=== PATIENT | female | born 1970 | race Hispanic/Latino ===

== ENCOUNTER 2017-07-05 08:19 | Emergency (ER) | payer BC ==
[2017-07-05 09:07] LABS: #Basophils 0.1 thou/uL (0.0-0.2); #Eosinphils 0.2 thou/uL (0.0-0.7); #Lymphocytes 1.7 thou/uL (1.20-3.40); #Monocytes 0.6 thou/uL (0.11-0.59); #Neutrophils 3.8 thou/uL (1.40-6.50); %Basophils 0.8 % (0.0-1.0); %Eosinophils 3.5 % (0.0-10.0); %Monocytes 8.8 % (0.0-10.0); %Neutrophils 59.9 % (42.0-75.0); Mean Corpuscular HGB CONC 33.4 g/dL (32.0-36.0); Mean Corpuscular Hemoglobin 29.7 pg (27.0-31.0); Mean Corpuscular Volume 88.7 fl (81.0-99.0); Mean Platelet Volume 7.1 fL (7.4-10.4); Platelet Count 378 thou/uL (130-400); RBC Distribution Width 13.5 % (11.5-14.5); Red Blood Cell (RBC) Count 4.05 mill/uL (4.20-5.40); White Blood Cell (WBC) Count 6.3 thou/uL (4.8-10.8)
--- NOTE | 2017-07-05 09:18 | RAD ---
2 VIEWS CHEST: Date: 07/05/17 COMPARISON: 05/26/17. HISTORY: Chest pain. FINDINGS: Two views of the chest show normal sized cardiomediastinal silhouette. There is no evidence of consol idation, mass, or pleural effusion. Degenerative changes are seen in the spine. IMPRESSION: No evidence of acute cardiopulmonary disease. POS: [facility]
[2017-07-05 09:26] LABS: ALT (SGPT) 18 U/L (8-55); AST (SGOT) 15 U/L (5-34); Alkaline Phosphatase 47 U/L (40-150); Anion Gap 10 mmol/L (10-20); BUN (Urea Nitrogen) 11 mg/dL (7.0-18.7); Bilirubin, Total Less than 0.2 mg/dL (0.2-1.2); Calc. Creatinine Clearance 0 mL/min (70-130); Calcium 9.2 mg/dL (7.8-10.44); Carbon Dioxide 25 mmol/L (22-29); Chloride 107 mmol/L (98-107); Estimated GFR-MDRD Greater than 90; Globulin 3.3 g/dL (2.4-3.5); Glucose 111 mg/dL (70-105); Potassium 3.6 mmol/L (3.5-5.1); Protein, Total 7.3 g/dL (6.0-8.3); Sodium 138 mmol/L (136-145)
[2017-07-05 09:31] LABS: CKMB 0.8 ng/mL (0-6.6); Troponin I Less than 0.010 ng/mL (< 0.028)
--- NOTE | 2017-07-10 14:21 | EKG ---
Test Reason : CP Blood Pressure : / mmHG Vent. Rate : 093 BPM Atrial Rate : 093 BPM P-R Int : 136 ms QRS Dur : 082 ms QT Int : 352 ms P-R-T Axes : 044 027 032 degrees QTc Int : 437 ms Normal sinus rhythm Normal ECG Confirmed by BOGDAN DAVALOS, HOLLIE ([id number]), newspaper editor managing GURU MERCHANT ([id number]) on 07/10/2017 2:21:25 PM Referred By: DR MCFADDEN Confirmed By:HOLLIE MCFADDEN MD
== END 2017-07-05 10:35 | disposition home or self-care (01) ==
LOC: ERS 08:19
DX: R07.89 Other chest pain (principal); R05 Cough; I10 Essential (primary) hypertension
CPT/HCPCS: 36415; 71046; 80053; 82553; 84484; 85025; 93005

== ENCOUNTER 2017-08-07 15:57 | Emergency (ER) | payer BC ==
[~2017-08-07 15:57] MED LIST: ISOVUE-370 76%-LOCM 1 ML ONE
[2017-08-07 16:48] LABS: INR-International Normal Ratio 1.1; PTT 27.4 SEC (22.9-36.1)
[2017-08-07 16:59] LABS: #Basophils 0.1 thou/uL (0.0-0.2); #Eosinphils 0.3 thou/uL (0.0-0.7); #Lymphocytes 1.3 thou/uL (1.20-3.40); #Monocytes 0.5 thou/uL (0.11-0.59); #Neutrophils 4.6 thou/uL (1.40-6.50); %Basophils 0.9 % (0.0-1.0); %Eosinophils 3.9 % (0.0-10.0); %Lymphocytes 19.6 % (21.0-51.0); %Monocytes 7.4 % (0.0-10.0); %Neutrophils 68.3 % (42.0-75.0); Hemoglobin 9.6 g/dL (12.0-16.0); Mean Corpuscular HGB CONC 32.2 g/dL (32.0-36.0); Mean Corpuscular Volume 86.8 fl (81.0-99.0); Mean Platelet Volume 6.5 fL (7.4-10.4); Platelet Count 412 thou/uL (130-400); RBC Distribution Width 12.2 % (11.5-14.5); Red Blood Cell (RBC) Count 3.41 mill/uL (4.20-5.40); White Blood Cell (WBC) Count 6.8 thou/uL (4.8-10.8)
[2017-08-07 17:02] LABS: ALT (SGPT) 12 U/L (8-55); AST (SGOT) 14 U/L (5-34); Albumin 3.9 g/dL (3.5-5.0); Alkaline Phosphatase 52 U/L (40-150); Anion Gap 11 mmol/L (10-20); BUN (Urea Nitrogen) 9 mg/dL (7.0-18.7); Bilirubin, Total Less than 0.2 mg/dL (0.2-1.2); CK (CPK) 51 U/L (29-168); Calc. Creatinine Clearance 0 mL/min (70-130); Calcium 8.5 mg/dL (7.8-10.44); Carbon Dioxide 28 mmol/L (22-29); Chloride 101 mmol/L (98-107); Estimated GFR-MDRD Greater than 90; Glucose 107 mg/dL (70-105); Potassium 3.6 mmol/L (3.5-5.1); Protein, Total 6.9 g/dL (6.0-8.3); Sodium 136 mmol/L (136-145)
[2017-08-07 17:06] LABS: CKMB 0.8 ng/mL (0-6.6)
[2017-08-07 18:57] LABS: Bilirubin Negative (Negative); Blood, Urine Small (Negative); Clarity CLEAR (Clear); Glucose, Urine (Dipstick) Negative (Negative); Leukocyte Large (Negative); Nitrite Negative (Negative); Protein, Urine (Dipstick) Negative (Neg-Trace); Specific Gravity, Urine 1.005 (1.002-1.036); Urobilinogen 0.2 mg/dL (0.2-1.0)
[2017-08-07 18:59] LABS: Bacteria/HPF 1+ HPF (None Seen); Hyaline Casts/LPF 0-3 HYALINE CAST LPF (0-3 Hyaline); Pathc Cast-AUWi Flag 0.13 (0-2.49); RBC/HPF 0-3 HPF (0-3)
[2017-08-07 19:02] LABS: Pregnancy Test - Urine (BHCG) Negative (Negative); Pregu Control Background? CLEAR/WHITE (CLR/WHITE); Pregu Control Bar Appear? YES (CONTROL BAR); Specific Gravity 1.005 (1.002-1.036)
[2017-08-07 19:14] LABS: Crystals/HPF None Seen HPF (Negative); Oval Fat Bodies/HPF None Seen HPF (None Seen); Renal Epithelial None Seen HPF (0-3); Transitional Epithelial NONE SEEN HPF (0-3); Trichomonas/HPF None Seen HPF (None Seen)
[2017-08-07 19:56] LABS: #Eosinphils 0.1 thou/uL (0.0-0.7); #Lymphocytes 1.2 thou/uL (1.20-3.40); #Monocytes 0.5 thou/uL (0.11-0.59); #Neutrophils 6.9 thou/uL (1.40-6.50); %Basophils 0.2 % (0.0-1.0); %Eosinophils 1.1 % (0.0-10.0); %Lymphocytes 14.1 % (21.0-51.0); %Monocytes 5.6 % (0.0-10.0); %Neutrophils 78.9 % (42.0-75.0); Hemoglobin 8.6 g/dL (12.0-16.0); Mean Corpuscular HGB CONC 32.1 g/dL (32.0-36.0); Mean Corpuscular Hemoglobin 28.4 pg (27.0-31.0); Mean Corpuscular Volume 88.4 fl (81.0-99.0); Mean Platelet Volume 6.7 fL (7.4-10.4); Platelet Count 371 thou/uL (130-400); RBC Distribution Width 12.2 % (11.5-14.5); Red Blood Cell (RBC) Count 3.04 mill/uL (4.20-5.40); White Blood Cell (WBC) Count 8.8 thou/uL (4.8-10.8)
--- NOTE | 2017-08-07 21:20 | CT ---
CT ABDOMEN AND PELVIS WITH IV CONTRAST 08/07/17 HISTORY: Syncope and collapse. Vaginal bleeding. COMPARISON: None available. FINDINGS: There is mild dependent bibasilar atelectasis. Degenerative changes are seen in the lower thoracic spine. Minimal vascular calcifications are seen in the abdominal aorta. Postcholecystectomy changes are noted. There are areas of cortical scarring involving the superior pole right kidney. Kidneys otherwise have a normal CT appearance. There is no hydronephrosis. The liver, spleen, pancreas, bilateral adrenal glands, and urinary bladder demonstrate a normal CT a ppearance. There is a low density mass seen in the right aspect of the uterine fundus on the right measuring 2.6 cm, probably related to a uterine fibroid. There are small low density structures seen within each o vary, probably related to dominant follicles and/or small cysts. There is mild nonspecific prominence of the cervix, but this is difficult to evaluate on CT exam. No free fluid, fluid collection or lymphadenopathy is seen in the abdomen or pelvis. IMPRESSION: 1. Mass within the uterine fundus probably related to a uterine fibroid. The cervix does appear prominent, but this is nonspecific and not well evaluated on CT exam. Pelvic ultrasound would be help ful for further evaluation. 2. Post cholecystectomy changes. 3. Cortical scarring right kidney. POS: [facility]
[2017-08-09 01:02] LABS: Chlamydia by PCR Not Detected (NotDetected); GC by PCR Not Detected (NotDetected)
== END 2017-08-07 21:03 | disposition home or self-care (01) ==
LOC: ERS 15:57
DX: N93.9 Abnormal uterine and vaginal bleeding, unspecified (principal); N85.8 Other specified noninflammatory disorders of uterus; I10 Essential (primary) hypertension
CPT/HCPCS: 36415; 51701; 74177; 80053; 81003; 81015; 81025; 82553; 83735; 84484; 85025; 85610; 85730; 86850; 86900; 86901; 87077; 87086; 87186; 87480; 87491; 87510; 87591; 87660; 93005; 96360; 96361; A4353

== ENCOUNTER 2017-11-02 16:24 | Outpatient (CLI) | payer BC ==
[2017-11-02 17:13] LABS: Hemoglobin 10.3 g/dL (12.0-16.0); Mean Corpuscular HGB CONC 32.4 g/dL (32.0-36.0); Mean Corpuscular Hemoglobin 29.4 pg (27.0-31.0); Mean Corpuscular Volume 90.8 fl (81.0-99.0); Mean Platelet Volume 6.5 fL (7.4-10.4); Platelet Count 512 thou/uL (130-400); RBC Distribution Width 17.4 % (11.5-14.5); Red Blood Cell (RBC) Count 3.51 mill/uL (4.20-5.40); White Blood Cell (WBC) Count 6.9 thou/uL (4.8-10.8)
[2017-11-02 17:24] LABS: BHCG - Serum Negative (NEGATIVE); Pregs Control Background? CLEAR/WHITE (CLR/WHITE); Pregs Control Bar Appear? YES (CONTROL BAR)
[2017-11-02 17:27] LABS: Anion Gap 11 mmol/L (10-20); BUN (Urea Nitrogen) 8 mg/dL (7.0-18.7); Calc. Creatinine Clearance 0 mL/min (70-130); Calcium 8.7 mg/dL (7.8-10.44); Carbon Dioxide 25 mmol/L (22-29); Chloride 105 mmol/L (98-107); Estimated GFR-MDRD Greater than 90; Glucose 159 mg/dL (70-105); Sodium 138 mmol/L (136-145)
== END 2017-11-02 16:25 | disposition home or self-care (01) ==
LOC: LABBT 16:24
PROVIDERS: ATTEND Student in an Organized Health Care Education/Training Program
DX: Z01.812 Encounter for preprocedural laboratory examination (principal); D25.9 Leiomyoma of uterus, unspecified; N92.0 Excessive and frequent menstruation with regular cycle
CPT/HCPCS: 80048; 84703; 85027; 86850; 86900; 86901

== ENCOUNTER → 2017-11-04 | Day surgery (SDC) | payer BC ==
[2017-11-02 17:01] VITALS: BMI 28.3
[~2017-11-04] MED LIST changes: +CEFAZOLIN/Water 2 GM/20 ML SYRINGE ONE; +CeleCOXIB 100 MG CAP ONE; +Dexamethasone 20 MG/5 ML VIAL ONE; +Fentanyl 100 MCG/2 ML VIAL ONE; +Fentanyl 250 MCG/5 ML VIAL ONE; +HYDROcodone/Acetaminophen 5/325 mg Tablet ONE; -ISOVUE-370 76%-LOCM 1 ML ONE; +Ketorolac Tromethamine 30 MG/ML VIAL ONE; +Lidocaine 1% PF 5 ML VIAL ONE; +Midazolam HCl 2 mg/2 ml Vial ONE; +Ondansetron HCl/PF 4 MG/2 ML Vial ONE; +PROPOFOL 200 MG/20 ML VIAL ONE; +ePHEDrine/0.9% NaCl/PF SYRINGE 50 mg/10 ml ONE
--- NOTE | 2017-11-05 10:44 | OP ---
DATE OF OPERATION: 11/04/2017 PREOPERATIVE DIAGNOSES: 1. Prolapsing submucosal fibroid. 2. Menorrhagia to anemia. POSTOPERATIVE DIAGNOSES: 1. Prolapsing submucosal fibroid. 2. Menorrhagia to anemia. PROCEDURE: Hysteroscopic myomectomy and Rica endometrial ablation. ANESTHESIA: General LMA. ATTENDING SURGEON: Rebecca Velez M.D. HOSE SPRAYER SURGEON: None. ESTIMATED BLOOD LOSS: 20 mL IVF: 700 mL of crystalloid. COMPLICATIONS: None. PATHOLOGY: Cervical fibroid. DRAINS: None. FINDINGS: There was a 3-cm prolapsing fibroid through the external cervical os with active bleeding around it. This fibroid was found to originate from the cervix near the internal cervical os. The u terine cavity did not have any additional submucosal fibroids visible and had a proliferative appeari ng endometrium with bilateral tubal ostia visualized. There were no perforations during the course o f the operation and was 200 mL. The uterus sounded to 9 cm and second look after myomectomy and abla tion showed good anaya to all uterine thacker. OPERATIVE TECHNIQUE: The patient was taken to the operating room where general anesthesia was obtain ed without difficulty. The patient was prepped and draped in a sterile fashion in dorsal lithotomy p osition. An I&O catheter was performed with less than 30 mL of urine. The speculum was placed in th e vagina. The anterior lip of the cervix was grasped with a ring forceps. The cervix was thinned ou t and dilated secondary to the prolapsing myoma. A mixture of 20 units of Pitressin mixed in 100 mL of normal saline was injected into the cervix. to allow for hemostasis. The fibroid as well was inj ected. Total amount was 30 mL that was used during the case. The large hysteroscope was inserted pa st the fibroid to identify where the fibroid was originating from and identify any additional masses or concerns. This was slipped past the fibroid and noted that the fibroid was off the cervix and the cavity was assessed as well. The fibroid itself was grasped with a tenaculum and the Ultra TruClear blade was passed through the operating channel of the hysteroscope and this was used to resect the f ibroid. The fibroid was extremely dense and resection was happening slowly, however, progress was ma de. Therefore, the target area was near the base of the stalk of the fibroid and once this was parti ally resected, traction was placed on the fibroid and the fibroid easily removed. The TruClear blade was then used to resect the remaining stalk that was present until it was flushed with the endocervi merrill canal. Additional endometrial sampling was performed and sent for pathology with the Chirag castellano. The hysteroscope and blade were then removed out of the patient. The Rica ablation device w as prepared in order to get a seal around the cervix on the Rica ablation device. The cervix was clamped bilaterally with 2 Allis clamps. The cavity length was dialed in at 6 and the Rica was in serted into the uterine fundus and the array was deployed. The cervical cap balloon was inflated and 5 syringes of air were used to inflate the balloon to fit snugly in the cervical os in order to pass cavity check along with the Allis clamps on both sides of the cervix. Cavity check was performed, i nitially failed. The Rica was then removed out of the patient and again reinserted into the patie nt with the balloon inflated. The Allis clamps were then replaced around the cervix to fit snugly an d the cavity check was performed and passed and Rica ablation was performed for 120 seconds. The cervical cap was deflated and the array was removed out of the patient after being collapsed. The se cond look hysteroscope noted a good anaya to all uterine thacker. No perforation and no active bleeding . All instruments were removed out of the patient. The patient tolerated the procedure well. Spong e, lap and needle counts were correct x2. The patient was taken to the recovery room in stable condi tion. The patient received Ancef 2 grams prior to the procedure.
== END ==
LOC: SDC 10:03 → EEVIPCON 17:00
PROVIDERS: ATTEND Student in an Organized Health Care Education/Training Program
PROC: 0U5B8ZZ Destruction of Endometrium, Via Natural or Artificial Opening Endoscopic (ICD-10-PCS; principal; 2017-11-04)
PROC: 0UB98ZZ Excision of Uterus, Via Natural or Artificial Opening Endoscopic (ICD-10-PCS; principal; 2017-11-04)
DX: D25.0 Submucous leiomyoma of uterus (principal); D50.0 Iron deficiency anemia secondary to blood loss (chronic); N39.0 Urinary tract infection, site not specified; I10 Essential (primary) hypertension; Z79.899 Other long term (current) drug therapy
CPT/HCPCS: 88305; 96374; J1100; J1885; J2001; J2250; J2405; J2704; J3010

== ENCOUNTER 2018-05-02 14:47 | Outpatient (CLI) | payer BC | END 2018-05-02 14:48 | disposition home or self-care (01) | LOC: CTENTCT 14:47 | PROVIDERS: ATTEND Otolaryngology Plastic Surgery within the Head & Neck | DX: J35.01 Chronic tonsillitis (principal) | CPT/HCPCS: 70486 ==

== ENCOUNTER 2018-05-11 07:31 | Day surgery (SDC) | payer BC ==
[2018-05-10 12:54] VITALS: BMI 28.3
[2018-05-11] MEDS ORDERED: Fentanyl 250 MCG/5 ML VIAL ONE (09:06)
[2018-05-11] MEDS ORDERED: HYDROmorphone 2 MG/ML VIAL ONE (09:06)
[2018-05-11] MEDS ORDERED: Oxymetazoline HCl 0.05% ( 15 ML ) ONE (09:43)
[2018-05-11] MEDS ORDERED: Midazolam HCl 2 mg/2 ml Vial ONE (09:47)
[2018-05-11] MEDS ORDERED: Lidocaine 1% w/Epinephrine 1:100K 30 ML VIAL ONE (10:06)
[2018-05-11] MEDS ORDERED: hydrALAZINE 20 MG/ML VIAL ONE (10:09)
[2018-05-11] MEDS ORDERED: Ferric Subsulfate 8 ML BOT ONE (10:09)
[2018-05-11] MEDS ORDERED: PROPOFOL 200 MG/20 ML VIAL ONE (16:30)
[2018-05-11] MEDS ORDERED: Metoprolol Tartrate 5 MG/5 ML VIAL ONE (16:30)
[2018-05-11] MEDS ORDERED: Lidocaine 1% PF 5 ML VIAL ONE (16:30)
[2018-05-11] MEDS ORDERED: Ondansetron PF 4 MG/2 ML Vial ONE (16:30)
[2018-05-11] MEDS ORDERED: Glycopyrrolate 0.2 MG/ML 5 ML SYRINGE ONE (16:30)
--- NOTE | 2018-05-27 08:17 | OP ---
DATE OF PROCEDURE: 05/11/2018 PREOPERATIVE DIAGNOSES: 1. Chronic rhinosinusitis. 2. Bilateral inferior turbinate hypertrophy. 3. Nasal obstruction. 4. Chronic adenotonsillitis. 5. Adenotonsillar hypertrophy. POSTOPERATIVE DIAGNOSES: 1. Chronic rhinosinusitis. 2. Bilateral inferior turbinate hypertrophy. 3. Nasal obstruction. 4. Chronic adenotonsillitis. 5. Adenotonsillar hypertrophy. PROCEDURES: 1. Bilateral endoscopic sinus surgery, total ethmoidectomies. 2. Bilateral endoscopic sinus surgery, maxillary antrostomies. 3. Bilateral endoscopic sinus surgery, frontal sinusotomies. 4. Bilateral inferior turbinate submucosal resection. 5. Tonsillectomy and adenoidectomy. ESTIMATED BLOOD LOSS: 100 mL. COMPLICATIONS: None. ANESTHESIA: GETA. DESCRIPTION OF PROCEDURE: After consent was obtained, the patient was identified, brought to the operating room, and placed on the operating table in the supine position. General endotracheal anesthesia and intravenous access were obtained and we proceeded with positioning the patient for oropharyngeal surgery. Oropharyngeal exposure was obtained with a Gabino-Montez mouth gag after a head drape was placed and secured with a towel clip. The Gabino-Montez mouth gag was then suspended from the Escamilla tray and palatal elevation was achieved with a red rubber catheter. The right tonsil was addressed first. We used a curved Allis to grasp the tonsil and retract it medially as an anterior pillar incision was made. The retrotonsillar fascial plane was then established and blunt dissection was performed with the suction cautery. Blood vessels were anticipated, identified, and cauterized as they were encountered. Ultimately, dissection was carried to the posterior tonsillar pillar mucosa which was incised hemostatically, as well as the base of tongue connection. The tonsil was then passed off as a specimen and bleeding points within the tonsillar bed were cauterized under direct visualization. We subsequently turned our attention to the contralateral side, where using a similar technique, a near identical procedure was performed. Again, the tonsil was grasped and retracted medially with a curved Allis. The retrotonsillar fascial plane was established and while the anterior pillar was retracted medially. The hemostatic blunt dissection of the tonsil with a suction cautery was performed with blood vessels anticipated, identified, and cauterized as they were encountered. Again, dissection continued to the base of tongue and posterior tonsillar pillar mucosa which was incised in a hemostatic fashion. The tonsillar beds were then carefully inspected and bleeding points were identified and cauterized with a suction cautery. After this portion of the procedure, hemostasis was completely obtained. Under direct mirror visualization, we visualized the adenoid pad. Under direct mirror visualization, we removed the bulk of the adenoid tissue with the adenoid curette. We then packed the nasopharynx for an appropriate period of time with Gtw-Azsoxgaebe-sttywsqnu tonsillar sponges. After a period of observation, we removed the pack. Under indirect mirror visualization, we obtained hemostasis and vaporization of residual adenoid tissue with electrocautery. The patient's oral cavity was copiously irrigated with iced saline and subsequently suctioned. After completion of the procedure, the nasal cavity and oropharynx were irrigated and suctioned as were the gastric contents. The patient was then awakened and transferred to the recovery room where the patient remained in stable condition prior to discharge to Day Stay. Following this, the patient was positioned in the beach chair position and prepped and draped for standard nasal procedure. Following this, the 0 degree scope was advanced into the nasal cavity. 1% lidocaine with 1:100,000 epinephrine was injected into the inferior turbinates, middle turbinates, and lateral nasal wall bilaterally. Following this, the Whiting elevator was used to gently medialize the middle turbinate bilaterally, exposing the uncinate process. Following this, the uncinate process was anteriorly fractured using a ball-ended probe and was removed using the straight microdebrider and upbiting Blakesley forceps bilaterally. Following this, the natural maxillary sinus ostia was identified and was gently widened using the curved microdebrider and straight Blakesley forceps bilaterally. Following this, the ethmoidal bulla was identified and was punctured on its medial and inferior aspect with microdebrider and was removed using the microdebrider and upbiting Blakesley forceps bilaterally. Following this, the grand lamella was identified and was punctured into the posterior ethmoidal cells bilaterally, working from posterior to anterior, the ethmoidal cells were opened using the curved microdebrider and upbiting Blakesley forceps. Following this, a 45-degree scope and a curved microdebrider were used to visualize the natural frontal sinus ostia, which was widened using the curved microdebrider bilaterally. Following this, the inferior turbinates were then punctured on the anterior and inferior aspects with a submucosal microdebrider and submucosal resection was performed of the anterior and inferior portions of the inferior turbinates bilaterally. Following this, the nasal cavity was irrigated. MeroPacks were placed within the middle meatus. The patient tolerated the procedure well. Job ID: [id number]
== END 2018-05-11 14:00 | disposition home or self-care (01) ==
LOC: SDC 07:31
PROVIDERS: ATTEND Otolaryngology Plastic Surgery within the Head & Neck
DX: J32.9 Chronic sinusitis, unspecified (principal); J34.3 Hypertrophy of nasal turbinates; J34.89 Other specified disorders of nose and nasal sinuses; J35.03 Chronic tonsillitis and adenoiditis; J34.2 Deviated nasal septum; D50.0 Iron deficiency anemia secondary to blood loss (chronic); I10 Essential (primary) hypertension; K21.9 Gastro-esophageal reflux disease without esophagitis; Z79.899 Other long term (current) drug therapy; Z98.890 Other specified postprocedural states
CPT/HCPCS: 85014; 88304; J0131; J0360; J1170; J2001; J2250; J2405; J2704; J3010; J3490

== ENCOUNTER 2018-06-06 17:32 | Emergency (ER) | payer BC ==
[2018-06-06 18:30] LABS: Hemoglobin 15.5 g/dL (12.0-16.0); Mean Corpuscular HGB CONC 34.9 g/dL (32.0-36.0); Mean Corpuscular Hemoglobin 31.5 pg (27.0-31.0); Mean Corpuscular Volume 90.2 fL (78.0-98.0); Mean Platelet Volume 6.4 fL (7.4-10.4); Platelet Count 487 thou/uL (130-400); RBC Distribution Width 12.1 % (11.5-14.5); Red Blood Cell (RBC) Count 4.92 mill/uL (4.20-5.40); White Blood Cell (WBC) Count 20.1 thou/uL (4.8-10.8)
--- NOTE | 2018-06-06 18:35 | RAD ---
PORTABLE AP CHEST X-RAY: 06/06/2018 HISTORY: Chest pain. Nausea. Dizziness. COMPARISON: 07/05/2017 FINDINGS: The cardiac silhouette and pulmonary vasculature are within normal limits. The lungs remain clear. There has been no interval change from the prior exam. IMPRESSION: No acute cardiopulmonary process. POS: [facility]
[2018-06-06 18:42] LABS: ALT (SGPT) 26 U/L (8-55); AST (SGOT) 18 U/L (5-34); Albumin 4.2 g/dL (3.5-5.0); Alkaline Phosphatase 70 U/L (40-150); Anion Gap 15 mmol/L (10-20); BUN (Urea Nitrogen) 15 mg/dL (7.0-18.7); Bilirubin, Total 0.3 mg/dL (0.2-1.2); Calc. Creatinine Clearance 0 mL/min (70-130); Calcium 9.2 mg/dL (7.8-10.44); Carbon Dioxide 23 mmol/L (22-29); Chloride 103 mmol/L (98-107); Estimated GFR-MDRD 71; Globulin 4.2 g/dL (2.4-3.5); Glucose 113 mg/dL (70-105); Lipase 28 U/L (8-78); Potassium 3.2 mmol/L (3.5-5.1); Protein, Total 8.4 g/dL (6.0-8.3); Sodium 138 mmol/L (136-145)
[2018-06-06 18:44] LABS: Band 17 % (5-11); Lymphocytes 6 % (21-51); MDiff Complete? YES; Monocytes 3 % (0-10); Neutrophil 72 % (42-75); PLT Morphology Comment Appears Increased; RBC Morphology Normal; Reactive Lymphocytes 2 % (0-10)
[2018-06-06] MEDS ORDERED: Ondansetron PF 4 MG/2 ML Vial ONE (19:24)
[2018-06-06 20:17] LABS: Bilirubin Small (Negative); Blood, Urine Small (Negative); Clarity CLEAR (Clear); Glucose, Urine (Dipstick) Negative (Negative); Leukocyte Negative (Negative); Nitrite Negative (Negative); Protein, Urine (Dipstick) 100 mg/dL (Neg-Trace); Specific Gravity, Urine 1.027 (1.002-1.036); Urobilinogen 0.2 mg/dL (0.2-1.0); pH, Urine 5.5 (5.0-9.0)
[2018-06-06 20:18] LABS: Bacteria/HPF None Seen HPF (None Seen)
[2018-06-06 20:23] LABS: Pathc Cast-AUWi Flag 3.63 (0-2.49)
[2018-06-06 20:34] LABS: Hyaline Casts/LPF 0-3 HYALINE CAST LPF (0-3 Hyaline); Other Casts/LPF None Seen LPF (0-3 Hyaline)
[2018-06-06] MEDS ORDERED: cefTRIAXone\\ROCEPHIN 1 GM VIAL ONE (21:05)
--- NOTE | 2018-06-06 21:18 | CT ---
ABDOMEN AND PELVIS CT SCAN WITH IV CONTRAST: HISTORY: A 48-year-old female with a history of abdominal pain, dizziness, vomiting, and diarrhea. FINDINGS: A 0.3 cm in diameter, subpleural nodule in the left lower lobe, not definitely seen on prior study, 0 08/07/2017, but there was motion artifact in that region, which could account for that. Status post c holecystectomy. The liver, pancreas, spleen, and adrenal glands are unremarkable. There is some sca rring of the right kidney. No renal calculus or acute obstruction. Normal appearing appendix. T here is some fluid within a nondilated and up to borderline dilated small bowel loops with some borde rline mucosal fold thickening in some of the jejunal loops, nonspecific, but this is a finding that c an be seen in nonspecific enteritis. Nodularity of the uterus, evidence for uterine fibroid. No abs cess or abnormal fluid collection. No renal calculus or acute obstruction. IMPRESSION: 1. Some borderline, nonspecific small bowel wall thickening and fluid, possibly mild enteritis. 2. Minimal scarring of the right kidney. 3. No renal calculus or genitourinary obstruction. 4. Normal appearing appendix. 5. No evidence for other significant acute process. 6. Other findings as above. POS: [facility]
== END 2018-06-06 22:50 | disposition home or self-care (01) ==
LOC: ERS 17:32
DX: A04.9 Bacterial intestinal infection, unspecified (principal); I10 Essential (primary) hypertension
CPT/HCPCS: 36415; 71045; 74177; 80053; 81003; 81015; 83690; 85025; 87040; 87086; 96361; 96365; 96375; J0696; J2405

== ENCOUNTER 2018-08-02 10:14 | Outpatient (CLI) | payer BC ==
--- NOTE | 2018-08-02 10:46 | RAD ---
TWO VIEWS CHEST: Comparison: None. History: Dyspnea. FINDINGS: Two views of the chest show normal sized cardiomediastinal silhouette. There is no evidence of consol idation, mass, or pleural effusion. Degenerative changes are seen in the spine. IMPRESSION: No evidence of acute cardiopulmonary disease. POS: [facility]
== END 2018-08-02 10:15 | disposition home or self-care (01) ==
LOC: RAD 10:14
PROVIDERS: ATTEND Internal Medicine Critical Care Medicine
DX: R06.00 Dyspnea, unspecified (principal)
CPT/HCPCS: 71046

== ENCOUNTER 2018-09-08 12:30 | Outpatient (CLI) | payer BC | END 2018-09-08 12:31 | disposition home or self-care (01) | LOC: CP 12:30 | PROVIDERS: ATTEND Internal Medicine Critical Care Medicine | DX: R05 Cough (principal) | CPT/HCPCS: 94060; 94727; 94729 ==

== ENCOUNTER 2018-10-07 20:03 | Emergency (ER) | payer BC | END 2018-10-07 21:08 | disposition home or self-care (01) | LOC: ERS 20:03 | DX: R21 Rash and other nonspecific skin eruption (principal); I10 Essential (primary) hypertension | CPT/HCPCS: 99282 ==

== ENCOUNTER 2018-10-25 08:21 | Outpatient (CLI) | payer BC ==
--- NOTE | 2018-10-25 08:36 | RAD ---
Chest 2 views HISTORY: Dyspnea. COMPARISON: 08/02/2018. FINDINGS: Cardiac silhouette and pulmonary vasculature are unremarkable. Mediastinum is midline. No c onfluent airspace consolidation, pneumothorax, or pleural fluid. IMPRESSION: No active cardiopulmonary abnormalities are demonstrated.
== END 2018-10-25 08:22 | disposition home or self-care (01) ==
LOC: RAD 08:21
PROVIDERS: ATTEND Internal Medicine Critical Care Medicine
DX: R06.00 Dyspnea, unspecified (principal)
CPT/HCPCS: 71046

== ENCOUNTER 2021-04-20 12:22 | Inpatient (IN) | payer BC, SELFPAY ==
[~2021-04-20 12:22] MED LIST changes: -CEFAZOLIN/Water 2 GM/20 ML SYRINGE ONE; -CeleCOXIB 100 MG CAP ONE; -Dexamethasone 20 MG/5 ML VIAL ONE; -Fentanyl 100 MCG/2 ML VIAL ONE; -Fentanyl 250 MCG/5 ML VIAL ONE; -HYDROcodone/Acetaminophen 5/325 mg Tablet ONE; +Iopamidol-370 76% 500 ML 1 ML ONE; -Ketorolac Tromethamine 30 MG/ML VIAL ONE; -Lidocaine 1% PF 5 ML VIAL ONE; -Midazolam HCl 2 mg/2 ml Vial ONE; -Ondansetron HCl/PF 4 MG/2 ML Vial ONE; -PROPOFOL 200 MG/20 ML VIAL ONE; -ePHEDrine/0.9% NaCl/PF SYRINGE 50 mg/10 ml ONE
[2021-04-20] MEDS ORDERED: Acetaminophen 500 MG TAB ONE (13:08)
[2021-04-20] MEDS ORDERED: Ketorolac Tromethamine 30 MG/ML VIAL ONE (13:08)
[2021-04-20] MEDS ORDERED: Hydrochlorothiazide 25 MG TAB PO SCH (13:30)
[2021-04-20 13:37] LABS: #Basophils 0.1 thou/uL (0.0-0.2); #Eosinphils 0.3 thou/uL (0.0-0.7); #Lymphocytes 1.4 thou/uL (1.20-3.40); #Monocytes 0.5 thou/uL (0.11-0.59); #Neutrophils 7.6 thou/uL (1.40-6.50); %Basophils 0.7 % (0.0-1.0); %Eosinophils 2.8 % (0.0-10.0); %Lymphocytes 13.9 % (21.0-51.0); %Monocytes 5.3 % (0.0-10.0); %Neutrophils 77.3 % (42.0-75.0); Hemoglobin 16.9 g/dL (12.0-16.0); Mean Corpuscular HGB CONC 35.1 g/dL (32.0-36.0); Mean Corpuscular Volume 91.3 fL (78.0-98.0); Mean Platelet Volume 6.9 fL (7.4-10.4); Platelet Count 349 thou/uL (130-400); RBC Distribution Width 11.9 % (11.5-14.5); Red Blood Cell (RBC) Count 5.28 mill/uL (4.20-5.40); White Blood Cell (WBC) Count 9.8 thou/uL (4.8-10.8)
[2021-04-20 14:01] LABS: ALT (SGPT) 87 U/L (8-55); AST (SGOT) 45 U/L (5-34); Albumin 4.2 g/dL (3.5-5.0); Alkaline Phosphatase 97 U/L (40-110); Anion Gap 16 mmol/L (10-20); BUN (Urea Nitrogen) 10 mg/dL (9.8-20.1); Bilirubin, Total 0.4 mg/dL (0.2-1.2); Calc. Creatinine Clearance 0 mL/min (70-130); Calcium 9.6 mg/dL (7.8-10.44); Carbon Dioxide 23 mmol/L (22-29); Chloride 102 mmol/L (98-107); Globulin 3.3 g/dL (2.4-3.5); Glucose 110 mg/dL (70-105); Potassium 4.2 mmol/L (3.5-5.1); Protein, Total 7.5 g/dL (6.0-8.3); Sodium 137 mmol/L (136-145)
[2021-04-20 14:21] LABS: CKMB 1.7 ng/mL (0-6.6)
[2021-04-20 14:30] LABS: BHCG - Serum Negative (NEGATIVE); Pregs Control Background? CLEAR/WHITE (CLR/WHITE); Pregs Control Bar Appear? YES (CONTROL BAR)
[2021-04-20] MEDS ORDERED: Labetalol HCl 100 MG/20 ML VIAL ONE (14:46)
[2021-04-20] MEDS ORDERED: Morphine 4 MG/ML VIAL ONE (15:05)
[2021-04-20] MEDS ORDERED: Aspirin Chewable 81 MG TAB ONE (15:06)
[2021-04-20] MEDS ORDERED: Ondansetron ODT 4 MG TAB PO PRN (15:58)
[2021-04-20] MEDS ORDERED: Nitroglycerin 0.4 MG TAB (25 Tab Bottle) SL PRN (16:00)
[2021-04-20] MEDS ORDERED: Electrolyte Replacement Protocol 1 EACH FS SCH (16:15)
[2021-04-20 16:58] LABS: Hemoglobin A1c 5.1 % (4.0-6.0)
[2021-04-20 17:07] LABS: Magnesium 1.7 mg/dL (1.6-2.6)
[2021-04-20 17:14] LABS: Troponin I 0.022 ng/mL (< 0.028)
[2021-04-20 17:36] VITALS: BMI 28.8
[2021-04-20 19:48] LABS: Troponin I 0.016 ng/mL (< 0.028)
[2021-04-20] MEDS ORDERED: Magnesium 2 GM/50 ML 2 GM in Premix Bag 1 BAG IVPB SCH (20:00)
[2021-04-20] MEDS: Acetaminophen 325 MG TAB PO PRN (21:01)
[2021-04-20 22:29] LABS: Troponin I 0.029 ng/mL (< 0.028)
[2021-04-20] MEDS: Labetalol HCl 100 MG/20 ML VIAL SLOW IVP PRN (22:47)
[2021-04-21] MEDS: Labetalol HCl 100 MG/20 ML VIAL SLOW IVP PRN ×4 (04:13→21:11)
[2021-04-21] MEDS: Acetaminophen 325 MG TAB PO PRN (04:18)
[2021-04-21 04:32] LABS: #Eosinphils 0.5 thou/uL (0.0-0.7); #Monocytes 0.6 thou/uL (0.11-0.59); #Neutrophils 4.7 thou/uL (1.40-6.50); %Basophils 0.4 % (0.0-1.0); %Eosinophils 6.7 % (0.0-10.0); %Lymphocytes 24.8 % (21.0-51.0); %Monocytes 8.1 % (0.0-10.0); Hemoglobin 14.8 g/dL (12.0-16.0); Mean Corpuscular HGB CONC 33.4 g/dL (32.0-36.0); Mean Corpuscular Hemoglobin 30.6 pg (27.0-31.0); Mean Corpuscular Volume 91.5 fL (78.0-98.0); Mean Platelet Volume 7.2 fL (7.4-10.4); Platelet Count 325 thou/uL (130-400); RBC Distribution Width 11.8 % (11.5-14.5); Red Blood Cell (RBC) Count 4.85 mill/uL (4.20-5.40); White Blood Cell (WBC) Count 7.9 thou/uL (4.8-10.8)
[2021-04-21 04:54] LABS: Anion Gap 12 mmol/L (10-20); BUN (Urea Nitrogen) 14 mg/dL (9.8-20.1); Calc. Creatinine Clearance 111 mL/min (70-130); Calcium 9.3 mg/dL (7.8-10.44); Carbon Dioxide 27 mmol/L (22-29); Cardiac Risk 5.2 (Less than 4.5); Chloride 101 mmol/L (98-107); Cholesterol 204 mg/dl (< 200 Desired); Glucose 109 mg/dL (70-105); HDL Cholesterol 39 mg/dL (>60 Neg Risk); LDL Cholesterol, Calculated 113 mg/dL; Potassium 3.2 mmol/L (3.5-5.1); Sodium 137 mmol/L (136-145); Triglycerides 259 mg/dL (Less than 150)
[2021-04-21] MEDS ORDERED: Morphine 4 MG/ML VIAL SLOW IVP SCH (06:15)
[2021-04-21] MEDS ORDERED: Potassium Chloride 20 MEQ TAB PO SCH (06:30)
[2021-04-21] MEDS: Aspirin Chewable 81 MG TAB PO SCH (08:28)
[2021-04-21] MEDS ORDERED: FLU VACC QS2021-22(6MOS UP)/PF 60 MCG/0.5 ML SYRINGE IM ONE (09:00)
[2021-04-21] MEDS ORDERED: hydrALAZINE 20 MG/ML VIAL FS SCH (09:12)
[2021-04-21] MEDS ORDERED: hydrALAZINE 25 MG TAB PO SCH ×2 (10:15→21:00)
[2021-04-21] MEDS: Amlodipine 5 MG TAB PO SCH (10:35)
[2021-04-21 11:33] LABS: SARS-CoV-2 PCR by NAA Not Detected (NotDetected)
[2021-04-21] MEDS: HYDROcodone/Acetaminophen 5/325 mg Tablet PO PRN (15:53)
[2021-04-21] MEDS ORDERED: methylPREDNISolone Sod Succ/PF 125 MG/2 ML VIAL IVP SCH (16:15)
[2021-04-22] MEDS: HYDROcodone/Acetaminophen 5/325 mg Tablet PO PRN ×3 (00:11→14:17)
[2021-04-22] MEDS: Labetalol HCl 100 MG/20 ML VIAL SLOW IVP PRN ×2 (01:49→07:53)
[2021-04-22] MEDS: Amlodipine 5 MG TAB PO SCH (07:52)
[2021-04-22] MEDS: Aspirin Chewable 81 MG TAB PO SCH (07:52)
[2021-04-22] MEDS ORDERED: methylPREDNISolone Sod Succ 40 MG VIAL IVP SCH (13:15)
[2021-04-22 16:09] VITALS: BP 166/85; TEMP 98.2
== END 2021-04-22 17:15 | disposition home or self-care (01) | DRG 74 ==
LOC: ERS 12:22 → ERHOLD 14:50 → 2NO 16:17 → OBSVTOIN 04-21 15:08
PROVIDERS: ADMIT Hospitalist; ATTEND Internal Medicine
DX: M54.12 Radiculopathy, cervical region (principal); Z20.822 Contact with and (suspected) exposure to COVID-19; K21.9 Gastro-esophageal reflux disease without esophagitis; M48.02 Spinal stenosis, cervical region; I16.0 Hypertensive urgency; I10 Essential (primary) hypertension; R20.2 Paresthesia of skin; R77.8 Other specified abnormalities of plasma proteins; J32.9 Chronic sinusitis, unspecified; Z90.49 Acquired absence of other specified parts of digestive tract; Z98.51 Tubal ligation status; Z79.899 Other long term (current) drug therapy
CPT/HCPCS: 36415; 71275; 72141; 74174; 80048; 80053; 80061; 82553; 83036; 83735; 84443; 84484; 84703; 85025; 93005; 93010; 96375; 96376; G0378; J1885; J2270; J2920; J2930; J3475; Q9967; U0003; U0005

== ENCOUNTER 2021-07-31 01:39 | Emergency (ER) | payer SELFPAY ==
[2021-07-31] MEDS ORDERED: Ketorolac Tromethamine 30 MG/ML VIAL ONE (03:04)
== END 2021-07-31 03:25 | disposition home or self-care (01) ==
LOC: ERS 01:39
DX: M25.551 Pain in right hip (principal); M25.511 Pain in right shoulder; I10 Essential (primary) hypertension; F17.210 Nicotine dependence, cigarettes, uncomplicated; V89.2XXA Person injured in unspecified motor-vehicle accident, traffic, initial encounter
CPT/HCPCS: 72170; 96372; J1885

== ENCOUNTER 2024-03-23 21:26 | Emergency (ER) | payer MEDICAID ==
[2024-03-23] MEDS ORDERED: predniSONE 20 MG TAB ONE (22:37)
== END 2024-03-23 23:50 | disposition home or self-care (01) ==
LOC: ERS 21:26
DX: B34.9 Viral infection, unspecified (principal); I10 Essential (primary) hypertension
CPT/HCPCS: 71045; 87081; 87428; 87430; J7512

== ENCOUNTER 2024-06-21 21:27 | Emergency (ER) | payer MEDICAID ==
[2024-06-21 21:50] LABS: #Basophils 0.05 10x3/uL (0.0-0.2); %Basophils 0.7 % (0.0-1.0); %Eosinophils 5.5 % (0.0-10.0); %Lymphocytes 25.2 % (21.0-51.0); %Monocytes 7.8 % (0.0-10.0); %Neutrophils 60.5 % (42.0-75.0); Hematocrit 40.3 % (36.0-47.0); Hemoglobin 13.9 g/dL (12.0-16.0); Mean Corpuscular HGB CONC 34.5 g/dL (32.0-36.0); Mean Corpuscular Hemoglobin 29.8 pg (27.0-31.0); Mean Corpuscular Volume 86.5 fL (78.0-98.0); Mean Platelet Volume 9.1 fL (7.4-10.4); Platelet Count 344 10x3/uL (130-400); RBC Distribution Width 13.2 % (11.5-14.5); Red Blood Cell (RBC) Count 4.66 mill/uL (4.20-5.40)
[2024-06-21 22:06] LABS: ALT (SGPT) 26 U/L (8-55); AST (SGOT) 21 U/L (5-34); Alkaline Phosphatase 81 U/L (40-110); Anion Gap 12 mmol/L (10-20); BUN (Urea Nitrogen) 15 mg/dL (9.8-20.1); Bilirubin, Total 0.2 mg/dL (0.2-1.2); Calc. Creatinine Clearance 0 mL/min (70-130); Calcium 8.8 mg/dL (7.8-10.44); Carbon Dioxide 29 mmol/L (22-29); Chloride 102 mmol/L (98-107); Estimated GFR 108; Globulin 3.6 g/dL (2.4-3.5); Glucose 91 mg/dL (70-105); Potassium 3.7 mmol/L (3.5-5.1); Protein, Total 7.6 g/dL (6.0-8.3); Sodium 139 mmol/L (136-145)
[2024-06-21 22:11] LABS: Troponin I 0.012 ng/mL (< 0.028)
== END 2024-06-21 23:14 | disposition home or self-care (01) ==
LOC: ERS 21:27
DX: H04.123 Dry eye syndrome of bilateral lacrimal glands (principal); R07.89 Other chest pain; I10 Essential (primary) hypertension; J45.909 Unspecified asthma, uncomplicated; Z79.51 Long term (current) use of inhaled steroids; Z79.899 Other long term (current) drug therapy
CPT/HCPCS: 36415; 71045; 80053; 84484; 85025; 93005